=== PATIENT | female | born 1945 | race Caucasian/White ===

== ENCOUNTER 2023-09-25 11:20 | Emergency (ER) | payer OTHER ==
[2023-09-25 11:26] VITALS: BMI 26.4
[2023-09-25 14:06] VITALS: BP 138/63; PULSE 87; RESP 20; TEMP 99.9
== END 2023-09-25 14:06 | disposition home or self-care (01) ==
LOC: JER 11:20
DX: U07.1 COVID-19 (principal); J10.1 Influenza due to other identified influenza virus with other respiratory manifestations; R05.9 Cough, unspecified; R50.9 Fever, unspecified; R51.9 Headache, unspecified; M79.10 Myalgia, unspecified site; R42 Dizziness and giddiness; R53.1 Weakness
CPT/HCPCS: 0241U-QW; 71045-TC-FY; 99284-25